=== PATIENT | male | born 1965 | race Caucasian/White ===

== ENCOUNTER 2018-01-05 10:16 | Day surgery (SDC) | payer BC, OTHER ==
[~2018-01-05] VITALS: Ht 170.2 cm; Wt 79.4 kg
[~2018-01-05 10:16] MED LIST: ASCO500C17 PO; CETI10TA17 PO; CHOL100045 PO; CYAN250010 PO; DOXY100C2 PO; EZET10TA5 PO; FERR160T5 PO; GUAI100L73 PO; IBUP-15 PO; METF750T2 PO; OMG1KC PO
--- OUTSIDE RECORDS SUMMARY | 2018-01-05 10:19 | XMS REPORT ---
Author Author ENRIQUETA BAKER [facility] Address [address] [place] [address] Care Team Providers Care Paint Trimmer Pipe Bowls Name Role Phone ENRIQUETA BAKER Unavailable PROBLEMS Type Condition ICD9-CM Code [id number] Code Onset Dates Condition Status SNOMED Code Problem Mood disorder F39 Active 30391018 Problem Low back pain M54.5 Active 338317394 Problem Mixed hyperlipidemia E78.2 Active 189165092 Problem Type 2 diabetes mellitus without complication E11.9 Active 26319480 Problem Cramps of right lower extremity R25.2 Active 332393656 Problem Unspecified mood [affective] disorder F39 Active 394031346 ALLERGIES No Known Allergies ENCOUNTERS Encounter Location Date Diagnosis [facility] [id number] [place] [address] 97338- 8567 Feb, [facility] [id number] [place] [address] 22988- 1559 Jan, [facility] [id number] [place] [address] 25227- 2134 Dec, Mood disorder F39 [facility] [id number] [place] [address] 46042- 6583 Nov, Type 2 diabetes mellitus without complication E11.9 ; Mixed hyperlipidemia E78.2 ; Elevated blood pressure reading R03.0 ; Screening for colon cancer Z12.11 and Positive depression screening Z13.89 [facility] [id number] [place] [address] 74368- 6486 Mar, Mixed hyperlipidemia E78.2 [facility] [id number] [place] [address] 80562- 5720 Mar, Type 2 diabetes mellitus without complication E11.9 and Mixed hyperlipidemia E78.2 [place] [facility] [id number] [place] [address] 47552- 7813 Feb, [place] [facility] [id number] [place] [address] 97958- 8090 Feb, [place] [facility] [id number] [place] [address] 85860- 8889 Feb, [place] [id number] [place] [address] 66426- 2413 Feb, Type 2 diabetes mellitus without complication E11.9 [facility] [address] [place] [address] Oct, Hand pain, right M79.641 ; Mixed hyperlipidemia E78.2 and Hand pain, left M79.642 [place] [id number] [place] [address] 44051- 2125 Sep, Hand pain, right M79.641 and Hand pain, left M79.642 [place] [facility] [id number] [place] [address] 29808- 0844 Sep, Type 2 diabetes mellitus without complication E11.9 ; Mixed hyperlipidemia E78.2 ; Low back pain M54.5 ; Hand pain, left M79.642 and Hand pain, right M79.641 [place] [facility] [id number] [place] [address] 91875- 0562 August, [place] [id number] [place] [address] 87047- 9324 May, [place] [facility] [id number] [place] [address] 09655- 5118 Apr, Mixed hyperlipidemia E78.2 [place] [facility] [id number] [place] [address] 78590- 0110 Apr, Mixed hyperlipidemia E78.2 ; Type 2 diabetes mellitus without complication E11.9 ; Cramps of right lower extremity R25.2 and Nevus of back D22.5 [place] [facility] [id number] [place] [address] 90897- 7748 Feb, Mixed hyperlipidemia E78.2 and Type 2 diabetes mellitus without complication E11.9 [facility] [id number] [place] [address] 34384- 9021 Nov, [facility] [id number] [place] [address] 07147- 8763 Nov, Mixed hyperlipidemia E78.2 and Type 2 diabetes mellitus without complication E11.9 [facility] [id number] [place] [address] 96746- 7352 Jun, Unspecified mood [affective] disorder F39 [facility] [id number] [place] [address] 26754- 5762 Feb, Mixed hyperlipidemia E78.2 and Type 2 diabetes mellitus without complication E11.9 [facility] [id number] [place] [address] 48873- 4346 Dec, Diabetes 250.00 and Hyperlipidemia 272.4 [facility] [id number] [place] [address] 37730- 2203 Jul, [facility] [id number] [place] [address] 46500- 0247 Jul, [facility] [id number] [place] [address] 12676- 7251 Mar, [facility] [id number] [place] [address] 58702- 2279 Mar, [facility] [id number] [place] [address] 25063- 1255 Feb, [facility] [id number] [place] [address] 19457- 1665 Feb, [facility] [id number] [place] [address] 54169- 8673 Feb, [facility] [id number] [place] [address] 98010- 0390 Feb, IMMUNIZATIONS No Known Immunizations SOCIAL HISTORY Never Assessed REASON FOR VISIT Diabetes- Waldemar Mckeon RN PLAN OF CARE Activity Details Follow Up 3 Months Reason:DM VITAL SIGNS Height 67 in 2017-11-05 Weight 180 lbs 2017-11-05 Temperature 98.0 degrees Fahrenheit 2017-11-05 Heart Rate 74 bpm 2017-11-05 Respiratory Rate 18 2017-11-05 BMI 28.19 kg/m2 2017-11-05 Blood pressure systolic 148 mmHg 2017-11-05 Blood pressure diastolic 90 mmHg 2017-11-05 MEDICATIONS Medication Instructions Dosage Frequency Start Date End Date Duration Status Zyrtec Allergy 10 MG Orally Once a day 1 tablet 24h Active Fish Oil 1200 MG Orally Twice a day 1 capsule 12h Active Zetia 10 MG TAKE ONE TABLET BY MOUTH ONCE DAILY Active Vitamin D 1000 UNIT Active Test strips Test Strips Check blood sugar Mar, Active metformin 750 mg by oral route 2 times a day take 1 tablet by Oral route 2 times per day with the evening meal 12h Active Multivitamin 1 tablet by Oral route 1 time per day Feb, Active Glucometer 1 glucometer Use glucometer to check blood sugar Mar, Active Lancets - subcutaneously Once a day E11.9 test blood sugar Feb, Active Ferrous Sulfate 325 mg (65 mg iron) 1 Tablet by Oral route 1 time per day give with food Feb, Active Vitamin C 1000 MG Orally 2 times a day 1 tablet 12h Active RESULTS Name Result Date Reference Range A1C (IN HOUSE) 2017-11-05 A1C IN HOUSE 5.9 4.3 - 5.6 % Previous A1c 5.6 Lot [id number] Exp date 06/2019 PROCEDURES Procedure Date Ordered Result Body Site GLYCATED HEMOGLOBIN TEST Nov 05, 2017 INSTRUCTIONS MEDICATIONS ADMINISTERED No Known Medications MEDICAL (GENERAL) HISTORY Type Description Date Medical History hyperlipidemia Medical History pre-diabetic Medical History Sleep Apnea- Cpap Medical History Viral warts, unspecified Surgical History appendectomy 1980
--- OUTSIDE RECORDS SUMMARY | 2018-01-05 10:19 | XMS REPORT ---
Author Author CURT SAMUEL [facility] Address [address] [place] [address] Care Team Providers Care General Counselor Name Role Phone CURT SAMUEL Unavailable PROBLEMS Type Condition ICD9-CM Code RSB99-HU Code Onset Dates Condition Status SNOMED Code Problem Mood disorder F39 Active 50933520 Problem Low back pain M54.5 Active 762891333 Problem Mixed hyperlipidemia E78.2 Active 098946253 Problem Type 2 diabetes mellitus without complication E11.9 Active 54812754 Problem Cramps of right lower extremity R25.2 Active 909361496 Problem Unspecified mood [affective] disorder F39 Active 217235018 ALLERGIES No Information ENCOUNTERS Encounter Location Date Diagnosis [facility] [facility] [id number] [place] [address] 41615- 4077 Feb, [facility] [id number] [place] [address] 68492- 7963 Jan, [facility] [id number] [place] [address] 73156- 8796 Jan, [facility] [id number] [place] [address] 76837- 3003 Dec, Mood disorder F39 [facility] [id number] [place] [address] 93366- 6272 Nov, Type 2 diabetes mellitus without complication E11.9 ; Mixed hyperlipidemia E78.2 ; Elevated blood pressure reading R03.0 ; Screening for colon cancer Z12.11 and Positive depression screening Z13.89 [facility] [id number] [place] [address] 33223- 9188 Mar, Mixed hyperlipidemia E78.2 [facility] [address] 41591- 0375 Mar, Type 2 diabetes mellitus without complication E11.9 and Mixed hyperlipidemia E78.2 [place] [facility] [id number] [place] [address] 64740- 3644 Feb, [facility] [id number] [place] [address] 14166- 4712 Feb, [facility] [facility] [id number] [place] [address] 87653- 6605 Feb, [facility] [facility] [id number] [place] [address] 81866- 3311 Feb, Type 2 diabetes mellitus without complication E11.9 [facility] [address] [place] [address] Oct, Hand pain, right M79.641 ; Mixed hyperlipidemia E78.2 and Hand pain, left M79.642 [place] [facility] [id number] [place] [address] 55877- 3051 Sep, Hand pain, right M79.641 and Hand pain, left M79.642 [place] [facility] [id number] [place] [address] 30239- 3138 Sep, Type 2 diabetes mellitus without complication E11.9 ; Mixed hyperlipidemia E78.2 ; Low back pain M54.5 ; Hand pain, left M79.642 and Hand pain, right M79.641 [place] [id number] [place] [address] 37021- 8429 August, [facility] [facility] [id number] [place] [address] 35663- 8501 May, [facility] [facility] [id number] [place] [address] 14122- 2427 Apr, Mixed hyperlipidemia E78.2 [place] [facility] [id number] [place] [address] 91265- 4645 Apr, Mixed hyperlipidemia E78.2 ; Type 2 diabetes mellitus without complication E11.9 ; Cramps of right lower extremity R25.2 and Nevus of back D22.5 [facility] [address] [address]- 2563 Feb, Mixed hyperlipidemia E78.2 and Type 2 diabetes mellitus without complication E11.9 [facility] [id number] [place] [address] 03278- 4353 Nov, [facility] [id number] [place] [address] 91887- 5532 Nov, Mixed hyperlipidemia E78.2 and Type 2 diabetes mellitus without complication E11.9 [facility] [id number] [place] [address] 67064- 9208 Jun, Unspecified mood [affective] disorder F39 [facility] [id number] [place] [address] 62821- 1843 Feb, Mixed hyperlipidemia E78.2 and Type 2 diabetes mellitus without complication E11.9 [facility] [id number] [place] [address] 13675- 0123 30 Dec, 2014 Diabetes 250.00 and Hyperlipidemia 272.4 [facility] [id number] [place] [address] 50294- 6132 Jul, [facility] [id number] [place] [address] 91211- 8491 Jul, [facility] [id number] [place] [address] 79062- 8592 Mar, [facility] [id number] [place] [address] 84553- 5030 Mar, [facility] [id number] [place] [address] 18370- 8836 Feb, [facility] [id number] [place] [address] 87500- 4702 Feb, [facility] [id number] [place] [address] 88269- 7715 Feb, [facility] [address] [facility] [id number] [place] [address]- 6860 Feb, IMMUNIZATIONS No Known Immunizations SOCIAL HISTORY Never Assessed REASON FOR VISIT intake PLAN OF CARE Activity Details Follow Up Next Available Reason: F/U VITAL SIGNS MEDICATIONS Medication Instructions Dosage Frequency Start Date End Date Duration Status Test strips Test Strips Check blood sugar Mar, Active Glucometer 1 glucometer Use glucometer to check blood sugar Mar, Active Ferrous Sulfate 325 mg (65 mg iron) 1 Tablet by Oral route 1 time per day give with food Feb, Active Multivitamin 1 tablet by Oral route 1 time per day Feb, Active metformin 750 mg by oral route 2 times a day take 1 tablet by Oral route 2 times per day with the evening meal 12h Active Zyrtec Allergy 10 MG Orally Once a day 1 tablet 24h Active Vitamin C 1000 MG Orally 2 times a day 1 tablet 12h Active Fish Oil 1200 MG Orally Twice a day 1 capsule 12h Active Zetia 10 MG TAKE ONE TABLET BY MOUTH ONCE DAILY 30 Active Vitamin D 1000 UNIT Active MetFORMIN HCl ER 750 MG TAKE ONE TABLET BY MOUTH TWICE DAILY WITH MEALS 30 Active Lancets - subcutaneously Once a day E11.9 test blood sugar Feb, Active RESULTS No Results PROCEDURES Procedure Date Ordered Result Body Site Psych diagnostic evaluation, established patient Dec 16, 2017 INSTRUCTIONS MEDICATIONS ADMINISTERED No Known Medications MEDICAL (GENERAL) HISTORY Type Description Date Medical History hyperlipidemia Medical History pre-diabetic Medical History Sleep Apnea- Cpap Medical History Viral warts, unspecified Surgical History appendectomy 1981
--- OUTSIDE RECORDS SUMMARY | 2018-01-05 10:19 | XMS REPORT ---
Author Author BOBY AGUILAR [facility] Address [address] [place] [address] Care Team Providers Care Sales Representative Gas [employer] Name Role Phone PAULIEBOBY AGUIRRE Unavailable PROBLEMS Type Condition ICD9-CM Code DOO39-UM Code Onset Dates Condition Status SNOMED Code Problem Low back pain M54.5 Active 028183413 Problem Cramps of right lower extremity R25.2 Active 356093795 Problem Type 2 diabetes mellitus without complication E11.9 Active 29860678 Problem Unspecified mood [affective] disorder F39 Active 079351258 Problem Mixed hyperlipidemia E78.2 Active 197458764 ALLERGIES No Information ENCOUNTERS Encounter Location Date Diagnosis [facility] [address] [address] 6111 Mar, Mixed hyperlipidemia E78.2 [facility] [address] [place] [address] 12576- 2979 Mar, Type 2 diabetes mellitus without complication E11.9 and Mixed hyperlipidemia E78.2 [facility] [address], [place] [address] 9803 Feb, [facility] [address] [place] [address] 90333- 8891 Feb, [facility] [address] [place] [address] 77353- 7792 Feb, [facility] [address] [place] [address] 19346- 4665 Feb, Type 2 diabetes mellitus without complication E11.9 [facility] [address] [facility] [id number] [place] [id number] Oct, Hand pain, right M79.641 ; Mixed hyperlipidemia E78.2 and Hand pain, left M79.642 [place] [address] [place] [address] 32767- 9043 09 Sep, 2016 Hand pain, right M79.641 and Hand pain, left M79.642 [place] [id number] [place] [address] 50184- 1013 Sep, Type 2 diabetes mellitus without complication E11.9 ; Mixed hyperlipidemia E78.2 ; Low back pain M54.5 ; Hand pain, left M79.642 and Hand pain, right M79.641 [place] [id number] [place] [address] 35980- 6907 August, [place] [address] 83211- 1514 May, [place] [id number] [place] [address] 67240- 3420 Apr, Mixed hyperlipidemia E78.2 [place] [id number] [place] [address] 26803- 8756 Apr, Mixed hyperlipidemia E78.2 ; Type 2 diabetes mellitus without complication E11.9 ; Cramps of right lower extremity R25.2 and Nevus of back D22.5 [place] [id number] [place] [address] 77564- 9809 Feb, Mixed hyperlipidemia E78.2 and Type 2 diabetes mellitus without complication E11.9 [place] [id number] [place] [address] 80867- 5429 Nov, [place] [id number] [place] [address] 52973- 0719 Nov, Mixed hyperlipidemia E78.2 and Type 2 diabetes mellitus without complication E11.9 [place] [id number] [place] [address] 90497- 0987 Jun, Unspecified mood [affective] disorder F39 [place] [id number] [place] [address] 70358- 1846 Feb, Mixed hyperlipidemia E78.2 and Type 2 diabetes mellitus without complication E11.9 [facility] [address], [place] [address]- 2519 Dec, Diabetes 250.[address] [facility] [address]- [address] [address] Jul, [address] [facility] [id number] [place] [address] 765324- [address] Jul, [facility] [id number] [place] [address] 39166- 0995 Mar, [facility] [id number] [place] [address] 21236- 7674 Mar, [facility] [id number] [place] [address] 57542- 3302 Feb, [facility] [id number] [place] [address] 37090- 6707 Feb, [facility] [address], [place] [address]- 0651 Feb, [facility] [address]- 6570 Feb, IMMUNIZATIONS No Known Immunizations SOCIAL HISTORY Never Assessed REASON FOR VISIT labs. Jamin PLAN OF CARE Activity Details Follow Up prn, 1 Year Reason: VITAL SIGNS MEDICATIONS Unknown Medications RESULTS No Results PROCEDURES Procedure Date Ordered Result Body Site ROUTINE VENIPUNCTURE 2016-10-06 N/A ASSAY OF CK (CPK) October 06, 2016 C-REACTIVE PROTEIN October 06, 2016 RHEUMATOID FACTOR, QUANT October 06, 2016 ANTINUCLEAR ANTIBODIES October 06, 2016 LIPID PANEL October 06, 2016 ASSAY OF MAGNESIUM October 06, 2016 RBC SED RATE, AUTOMATED October 06, 2016 COMPREHEN METABOLIC PANEL October 06, 2016 INSTRUCTIONS MEDICATIONS ADMINISTERED No Known Medications MEDICAL (GENERAL) HISTORY Type Description Date Medical History hyperlipidemia Medical History pre-diabetic Medical History Sleep Apnea- Cpap Medical History Viral warts, unspecified Surgical History appendectomy 1981
--- OUTSIDE RECORDS SUMMARY | 2018-01-05 10:20 | XMS REPORT ---
Author Author DIANN JUAREZ Organization [facility] Address [address] [place] [address] Care Team Providers Care Well Point Pumping Supervisor Name Role Phone DIANN JUAREZ Unavailable PROBLEMS Type Condition ICD9-CM Code NKT07-IW Code Onset Dates Condition Status SNOMED Code Problem Low back pain M54.5 Active 157381424 Problem Cramps of right lower extremity R25.2 Active 116431717 Problem Type 2 diabetes mellitus without complication E11.9 Active 83432241 Problem Unspecified mood [affective] disorder F39 Active 197377211 Problem Mixed hyperlipidemia E78.2 Active 947514718 ALLERGIES No Information ENCOUNTERS Encounter Location Date Diagnosis [facility] [id number] [place] [address] 58913- 7991 Mar, Mixed hyperlipidemia E78.2 [facility] [address] [place] [address] 97005- 7126 Mar, Type 2 diabetes mellitus without complication E11.9 and Mixed hyperlipidemia E78.2 [facility] [address] [address]- 9661 Feb, [facility] [address] [place] [address] 84053- 1565 Feb, [facility] [address] [address]- 4295 Feb, [facility] [address] [place] [address] 61385- 2410 Feb, Type 2 diabetes mellitus without complication E11.9 [facility] [id number] [place] [id number] Oct, Hand pain, right M79.641 ; Mixed hyperlipidemia E78.2 and Hand pain, left M79.642 [facility] [id number] [place] [address] 67438- 5607 09 Sep, 2016 Hand pain, right M79.641 and Hand pain, left M79.642 [facility] [id number] [place] [address] 18659- 0496 Sep, Type 2 diabetes mellitus without complication E11.9 ; Mixed hyperlipidemia E78.2 ; Low back pain M54.5 ; Hand pain, left M79.642 and Hand pain, right M79.641 [place] [id number] [place] [address] 99209- 3797 August, [place] [id number] [place] [address] 52761- 4725 May, [place] [id number] [place] [address] 83668- 7835 Apr, Mixed hyperlipidemia E78.2 [place] [id number] [place] [address] 69667- 0553 Apr, Mixed hyperlipidemia E78.2 ; Type 2 diabetes mellitus without complication E11.9 ; Cramps of right lower extremity R25.2 and Nevus of back D22.5 [place] [id number] [place] [address] 73055- 3675 Feb, Mixed hyperlipidemia E78.2 and Type 2 diabetes mellitus without complication E11.9 [place] [id number] [place] [address] 39817- 4352 Nov, [place] [id number] [place] [address] 45194- 1134 Nov, Mixed hyperlipidemia E78.2 and Type 2 diabetes mellitus without complication E11.9 [place] [id number] [place] [address] 12831- 4317 Jun, Unspecified mood [affective] disorder F39 [place] [id number] [place] [address] 99704- 7552 Feb, Mixed hyperlipidemia E78.2 and Type 2 diabetes mellitus without complication E11.9 [facility] [address] [place] [address] 31930- 9696 Dec, Diabetes 250.00 and Hyperlipidemia 272.4 [facility] [id number] [place] [address] 47719- 7398 Jul, [facility] [id number] [place] [address] 53850- 4994 Jul, [facility] [id number] [place] [address] 37421- 6570 Mar, [facility] [id number] [place] [address] 68602- 8225 Mar, [facility] [id number] [place] [address] 43775- 8682 Feb, [facility] [id number] [place] [address] 79111- 5755 Feb, [facility] [id number] [place] [address] 98456- 1562 Feb, [facility] [id number] [place] [address] 76992- 2780 Feb, IMMUNIZATIONS No Known Immunizations SOCIAL HISTORY Never Assessed REASON FOR VISIT Lab (walk-in) PLAN OF CARE VITAL SIGNS MEDICATIONS Unknown Medications RESULTS No Results PROCEDURES Procedure Date Ordered Result Body Site COMPREHEN METABOLIC PANEL Mar 31, 2017 VENIPADONIS, ROUTINE* Mar 31, 2017 INSTRUCTIONS MEDICATIONS ADMINISTERED No Known Medications MEDICAL (GENERAL) HISTORY Type Description Date Medical History hyperlipidemia Medical History pre-diabetic Medical History Sleep Apnea- Cpap Medical History Viral warts, unspecified Surgical History appendectomy 1980
--- OUTSIDE RECORDS SUMMARY | 2018-01-05 10:20 | XMS REPORT ---
Author Author DIANN JUAREZ Organization [facility] Address [address] [place] [address] Care Team Providers Care Ammonium Hydroxide Operator Name Role Phone DIANN JUAREZ Unavailable PROBLEMS Type Condition ICD9-CM Code [id number] Code Onset Dates Condition Status SNOMED Code Problem Low back pain M54.5 Active 626686501 Problem Cramps of right lower extremity R25.2 Active 669772215 Problem Type 2 diabetes mellitus without complication E11.9 Active 98257169 Problem Unspecified mood [affective] disorder F39 Active 615828417 Problem Mixed hyperlipidemia E78.2 Active 818230697 ALLERGIES No Known Allergies ENCOUNTERS Encounter Location Date Diagnosis [place] [id number] [place] [address] 85911- 8631 Mar, Mixed hyperlipidemia E78.2 [facility] [address] [place] [address] 42309- 6612 Mar, Type 2 diabetes mellitus without complication E11.9 and Mixed hyperlipidemia E78.2 [facility] [address] [address] 3[address] Feb, [facility] [address] [place] [address] 15448- 2356 Feb, [facility] [address] [address] 5542 Feb, [facility] [address] [place] [address] 08420- 4556 Feb, Type 2 diabetes mellitus without complication E11.9 [facility] [address] [id number] [id number] Oct, Hand pain, right M79.641 ; Mixed hyperlipidemia E78.2 and Hand pain, left M79.642 [facility] [address] [place] [address] 98757- 8399 09 Sep, 2016 Hand pain, right M79.641 and Hand pain, left M79.642 [facility] [address] [place] [id number] [place] [address] 07365- 5217 Sep, Type 2 diabetes mellitus without complication E11.9 ; Mixed hyperlipidemia E78.2 ; Low back pain M54.5 ; Hand pain, left M79.642 and Hand pain, right M79.641 [place] [address] [place] [id number] [place] [address] 63520- 5205 August, [place] [address] [place] [id number] [place] [address] 38600- 3728 May, [place] [address] [place] [id number] [place] [address] 10050- 7457 Apr, Mixed hyperlipidemia E78.2 [place] [address] [place] [id number] [place] [address] 76442- 5120 Apr, Mixed hyperlipidemia E78.2 ; Type 2 diabetes mellitus without complication E11.9 ; Cramps of right lower extremity R25.2 and Nevus of back D22.5 [place] [address] [place] [id number] [place] [address] 60794- 4035 Feb, Mixed hyperlipidemia E78.2 and Type 2 diabetes mellitus without complication E11.9 [place] [address] [place] [id number] [place] [address] 27124- 8440 Nov, [place] [address] [place] [id number] [place] [address] 53632- 0062 Nov, Mixed hyperlipidemia E78.2 and Type 2 diabetes mellitus without complication E11.9 [place] [address] [place] [id number] [place] [address] 97908- 8441 Jun, Unspecified mood [affective] disorder F39 [place] [address] [place] [id number] [place] [address] 03037- 4564 Feb, Mixed hyperlipidemia E78.2 and Type 2 diabetes mellitus without complication E11.9 [facility] [address] [place] [address] 53453- 7940 Dec, Diabetes 250.00 and Hyperlipidemia 272.4 [facility] [address] [place] [address] 44390- 3232 Jul, [facility] [address] [place] [id number] [place] [address] 74988- 6160 Jul, [facility] [address] [place] [address] [id number] [place] [address] 13054- 9451 Mar, [facility] [address] [place] [address] [id number] [place] [address] 80481- 0984 Mar, [facility] [address] [place] [address] [id number] [place] [address] 81699- 4204 Feb, [facility] [address] [place] [id number] [place] [address] 52341- 0668 Feb, [facility] [address] [place] [address] 18945- 2774 Feb, [facility] [address] [place] [address] 24522- 8046 Feb, IMMUNIZATIONS No Known Immunizations SOCIAL HISTORY Never Assessed REASON FOR VISIT Diabetes f/u -Pb Quintero PLAN OF CARE Activity Details Follow Up 3 Months Reason:DM VITAL SIGNS Height 67 in 2017-03-25 Weight 175 lbs 2017-03-25 Temperature 98.6 degrees Fahrenheit 2017-03-25 Heart Rate 80 bpm 2017-03-25 Respiratory Rate 18 2017-03-25 BMI 27.41 kg/m2 2017-03-25 Blood pressure systolic 120 mmHg 2017-03-25 Blood pressure diastolic 70 mmHg 2017-03-25 MEDICATIONS Medication Instructions Dosage Frequency Start Date End Date Duration Status Glucometer 1 glucometer Use glucometer to check blood sugar Mar, Active Vitamin D 2000 UNIT Active Zyrtec Allergy 10 MG Orally Once a day 1 tablet 24h Active Ferrous Sulfate 325 mg (65 mg iron) 1 Tablet by Oral route 1 time per day give with food Feb, Active Test strips Test Strips Check blood sugar Mar, Active Zetia 10 mg TAKE ONE TABLET BY MOUTH ONCE DAILY 30 Active Multivitamin 1 tablet by Oral route 1 time per day Feb, Active Vitamin C 1000 MG Orally 2 times a day 1 tablet 12h Active Lancets - subcutaneously Once a day E11.9 test blood sugar Feb, Active Fish Oil 1200 MG Orally Twice a day 1 capsule 12h Active metformin 750 mg by oral route 2 times a day take 1 tablet by Oral route 2 times per day with the evening meal 12h Active Flonase 50 MCG/ACT Nasally twice daily for 2 weeks then once daily 1 spray in each nostril Feb, 30 day(s) Active RESULTS Name Result Date Reference Range A1C (IN HOUSE) 2017-03-25 A1C IN HOUSE 5.6 4.3 - 5.6 % Previous A1c 5.7 Lot [id number] Exp date 12/2018 MICROALBUMIN, URINE (IN HOUSE) 2017-03-25 MICROALBUMIN Lot # [id number] Exp date 12/2017 Clarity clear Color Yellow ALB 10 CRE 300 A:C (IN HOUSE) <30 Control Control Lot # Exp date PROCEDURES Procedure Date Ordered Result Body Site GLYCATED HEMOGLOBIN TEST Mar 25, 2017 MICROALBUMIN, SEMIQUANT Mar 25, 2017 INSTRUCTIONS MEDICATIONS ADMINISTERED No Known Medications MEDICAL (GENERAL) HISTORY Type Description Date Medical History hyperlipidemia Medical History pre-diabetic Medical History Sleep Apnea- Cpap Medical History Viral warts, unspecified Surgical History appendectomy 1980
--- OUTSIDE RECORDS SUMMARY | 2018-01-05 10:20 | XMS REPORT ---
Author Author DIANN JUAREZ [facility] Address [address] [place] [address] Care Team Providers Care Slide Fastener Chain Assembler Name Role Phone DIANN JUAREZ Unavailable PROBLEMS Type Condition ICD9-CM Code [id number] Code Onset Dates Condition Status SNOMED Code Problem Low back pain M54.5 Active 272362219 Problem Cramps of right lower extremity R25.2 Active 185841584 Problem Type 2 diabetes mellitus without complication E11.9 Active 97665695 Problem Unspecified mood [affective] disorder F39 Active 469073966 Problem Mixed hyperlipidemia E78.2 Active 810775418 ALLERGIES No Information SOCIAL HISTORY Never Assessed PLAN OF CARE VITAL SIGNS MEDICATIONS Medication Instructions Dosage Frequency Start Date End Date Duration Status Zetia 10 mg Orally Once a day TAKE ONE TABLET BY MOUTH ONCE DAILY 24h 30 Active RESULTS No Results PROCEDURES No Known procedures IMMUNIZATIONS No Known Immunizations MEDICAL (GENERAL) HISTORY Type Description Date Medical History hyperlipidemia Medical History pre-diabetic Medical History Sleep Apnea- Cpap Medical History Viral warts, unspecified Surgical History appendectomy 1980
--- OUTSIDE RECORDS SUMMARY | 2018-01-05 10:20 | XMS REPORT ---
Author Author DIANN JUAREZ Organization [facility] Address [address] [place] [address] Care Team Providers Care Expansion Joint Finisher Name Role Phone DIANN JUAREZ Unavailable PROBLEMS Type Condition ICD9-CM Code GZP28-[id number] Code Onset Dates Condition Status SNOMED Code Problem Low back pain M54.5 Active 987324985 Problem Cramps of right lower extremity R25.2 Active 167646082 Problem Type 2 diabetes mellitus without complication E11.9 Active 69028412 Problem Unspecified mood [affective] disorder F39 Active 637162042 Problem Mixed hyperlipidemia E78.2 Active 256439974 ALLERGIES No Information ENCOUNTERS Encounter Location Date Diagnosis [facility] [address] [place] [address] 45774- 0608 Mar, Mixed hyperlipidemia E78.2 [facility] [address] [place] [address] 20598- 7190 Mar, Type 2 diabetes mellitus without complication E11.9 and Mixed hyperlipidemia E78.2 [facility] [address], [place] [address] 8841 Feb, [facility] [address] [place] [address] 44426- 4722 Feb, [facility] [address], [place] [address]- 5484 Feb, [facility] [address] [place] [address] 34656- 6360 Feb, Type 2 diabetes mellitus without complication E11.9 [facility] [id number] [id number] Oct, Hand pain, right M79.641 ; Mixed hyperlipidemia E78.2 and Hand pain, left M79.642 [facility] [address] [place] [id number] [place] [address] 08444- 1610 09 Sep, 2016 Hand pain, right M79.641 and Hand pain, left M79.642 [facility] [address] [place] [id number] [place] [address] 65066- 7639 Sep, Type 2 diabetes mellitus without complication E11.9 ; Mixed hyperlipidemia E78.2 ; Low back pain M54.5 ; Hand pain, left M79.642 and Hand pain, right M79.641 [place] [address] [place] [id number] [place] [address] 89113- 4091 August, [place] [address] [place] [id number] [place] [address] 10630- 1888 May, [place] [address] [place] [id number] [place] [address] 64901- 0995 Apr, Mixed hyperlipidemia E78.2 [place] [address] [place] [id number] [place] [address] 93260- 7332 Apr, Mixed hyperlipidemia E78.2 ; Type 2 diabetes mellitus without complication E11.9 ; Cramps of right lower extremity R25.2 and Nevus of back D22.5 [place] [address] [place] [id number] [place] [address] 07762- 9140 Feb, Mixed hyperlipidemia E78.2 and Type 2 diabetes mellitus without complication E11.9 [place] [address] [place] [id number] [place] [address] 90994- 4482 Nov, [place] [address] [place] [id number] [place] [address] 66126- 1297 Nov, Mixed hyperlipidemia E78.2 and Type 2 diabetes mellitus without complication E11.9 [place] [address] [place] [id number] [place] [address] 30828- 7187 Jun, Unspecified mood [affective] disorder F39 [place] [address] [place] [id number] [place] [address] 06015- 5428 Feb, Mixed hyperlipidemia E78.2 and Type 2 diabetes mellitus without complication E11.9 [facility] [address] [place] [id number] [place] [address] 91721- 3080 Dec, Diabetes 250.00 and Hyperlipidemia 272.4 [facility] [address] [place] [id number] [place] [address] 45707- 0718 Jul, [facility] [address] 77695- 5010 Jul, [facility] [address] [place] [id number] [place] [address] 92581- 2693 Mar, [facility] [address] [place] [id number] [place] [address] 37968- 5587 Mar, [facility] [address] [place] [id number] [place] [address] 99255- 4856 Feb, [facility] [address] [place] [id number] [place] [address] 07651- 6846 Feb, [facility] [address] [place] [id number] [place] [address] 83248- 9865 Feb, [facility] [address] [place] [id number] [place] [address] 97816- 6483 Feb, IMMUNIZATIONS No Known Immunizations SOCIAL HISTORY Never Assessed REASON FOR VISIT Triage PLAN OF CARE VITAL SIGNS MEDICATIONS Unknown Medications RESULTS No Results PROCEDURES No Known procedures INSTRUCTIONS MEDICATIONS ADMINISTERED No Known Medications MEDICAL (GENERAL) HISTORY Type Description Date Medical History hyperlipidemia Medical History pre-diabetic Medical History Sleep Apnea- Cpap Medical History Viral warts, unspecified Surgical History appendectomy 1980
--- OUTSIDE RECORDS SUMMARY | 2018-01-05 10:20 | XMS REPORT ---
Author Author DIANN JUAREZ Organization [facility] Address [address] [place] [address] Care Team Providers Care Evp Business Development Name Role Phone DIANN JUAREZ Unavailable PROBLEMS Type Condition ICD9-CM Code [id number] Code Onset Dates Condition Status SNOMED Code Problem Low back pain M54.5 Active 394509027 Problem Cramps of right lower extremity R25.2 Active 390224734 Problem Type 2 diabetes mellitus without complication E11.9 Active 54839445 Problem Unspecified mood [affective] disorder F39 Active 796937039 Problem Mixed hyperlipidemia E78.2 Active 423362519 ALLERGIES No Information ENCOUNTERS Encounter Location Date Diagnosis [facility] [address] [place] [address] 93712- 0305 Mar, Mixed hyperlipidemia E78.2 [facility] [address] [place] [address] 74636- 6227 Mar, Type 2 diabetes mellitus without complication E11.9 and Mixed hyperlipidemia E78.2 [facility] [address] [address]- 8128 Feb, [facility] [address] [place] [address] 17654- 5802 Feb, [facility] [address] [address]- 5453 Feb, [facility] [address] [place] [address] 81604- 7050 Feb, Type 2 diabetes mellitus without complication E11.9 [facility] [address] [id number] [place] [id number] Oct, Hand pain, right M79.641 ; Mixed hyperlipidemia E78.2 and Hand pain, left M79.642 [facility] [address] [place] [id number] [place] [address] 09723- 6718 09 Sep, 2016 Hand pain, right M79.641 and Hand pain, left M79.642 [facility] [address] [place] [id number] [place] [address] 45037- 3235 Sep, Type 2 diabetes mellitus without complication E11.9 ; Mixed hyperlipidemia E78.2 ; Low back pain M54.5 ; Hand pain, left M79.642 and Hand pain, right M79.641 [place] [address] [place] [id number] [place] [address] 33537- 3002 August, [place] [address] [place] [id number] [place] [address] 24597- 9821 May, [place] [address] [place] [id number] [place] [address] 53864- 1499 Apr, Mixed hyperlipidemia E78.2 [place] [address] [place] [id number] [place] [address] 46628- 1205 Apr, Mixed hyperlipidemia E78.2 ; Type 2 diabetes mellitus without complication E11.9 ; Cramps of right lower extremity R25.2 and Nevus of back D22.5 [place] [address] [place] [id number] [place] [address] 36025- 0326 Feb, Mixed hyperlipidemia E78.2 and Type 2 diabetes mellitus without complication E11.9 [place] [address] [place] [id number] [place] [address] 49276- 1852 Nov, [place] [address] [place] [id number] [place] [address] 71203- 6895 Nov, Mixed hyperlipidemia E78.2 and Type 2 diabetes mellitus without complication E11.9 [place] [address] [place] [id number] [place] [address] 82987- 0094 Jun, Unspecified mood [affective] disorder F39 [place] [address] [place] [id number] [place] [address] 39668- 5075 Feb, Mixed hyperlipidemia E78.2 and Type 2 diabetes mellitus without complication E11.9 [facility] [address] [address]- 3821 Dec, Diabetes 250.00 and Hyperlipidemia 272.4 [facility] [address] [address]- 0970 14 Jul, 2014 [facility] [address] [place] [id number] [place] [address] 88680- 2930 Jul, [facility] [address] [place] [address] 68983- 3572 Mar, [facility] [address] [place] [id number] [place] [address] 75533- 1207 Mar, [facility] [address] [place] [id number] [place] [address] 06006- 5065 Feb, [facility] [address] [place] [id number] [place] [address] 72434- 9747 Feb, [facility] [address] [address]- 4576 Feb, [facility] [address] [address]- 4486 Feb, IMMUNIZATIONS No Known Immunizations SOCIAL HISTORY Never Assessed REASON FOR VISIT Glucometer PLAN OF CARE VITAL SIGNS MEDICATIONS Medication Instructions Dosage Frequency Start Date End Date Duration Status Blood Glucose Test - subcutaneously Once a day E11.9 test blood sugar Feb, Active Blood Glucose Monitor System w/Device as directed Feb, Active Lancets - subcutaneously Once a day E11.9 test blood sugar Feb, Active RESULTS No Results PROCEDURES No Known procedures INSTRUCTIONS MEDICATIONS ADMINISTERED No Known Medications MEDICAL (GENERAL) HISTORY Type Description Date Medical History hyperlipidemia Medical History pre-diabetic Medical History Sleep Apnea- Cpap Medical History Viral warts, unspecified Surgical History appendectomy 1981
--- OUTSIDE RECORDS SUMMARY | 2018-01-05 10:21 | XMS REPORT | Continuity of Care Document ---
Author Author [facility] Address Unknown Phone Unavailable Allergies Active Description Code Type Severity Reaction Onset Reported/Identified Relationship to Patient Clinical Status Yes No Known Medication Allergies Drug N/A N/A Yes No Known Medication Allergies Drug N/A N/A Yes No Known Drug Allergies [id number] Drug Allergy Unknown N/A 01/31/2011 Medications There is no data. Problems Date Dx Coded Attending Type Code Diagnosis Diagnosed By 01/31/2011 Ot 465.9 ACUTE URI NOS 01/31/2011 Ot 490 BRONCHITIS NOS 01/31/2011 Ot 786.2 COUGH 07/13/2013 TASH MCCOLLUM 327.23 OBST SLEEP APNEA 02/06/2014 JANNET PIRES DO 078.10 VIRAL WARTS UNSPECIFIED 02/06/2014 LEXIS STERN JANNET K 272.4 DYSLIPIDEMIA 02/06/2014 LEXIS STERN JANNET K 790.29 OTHER ABNORMAL GLUCOSE 02/06/2014 JUDITH PIRES DOA K 790.6 OTHER ABNORMAL BLOOD CHEMISTRY 02/06/2014 JUDITH PIRES DOA K V70.0 ROUTINE GENERAL MEDICAL EXAMINATION AT A HEALTH CARE FACILITY 02/06/2014 JUDITH PIRES DOA K 078.10 VIRAL WARTS UNSPECIFIED 02/06/2014 JUDITH PIRES DOA K 272.4 DYSLIPIDEMIA 02/06/2014 JUDITH PIRES DOA K 790.29 OTHER ABNORMAL GLUCOSE 02/06/2014 LEXIS STERN JANNET K 790.6 OTHER ABNORMAL BLOOD CHEMISTRY 02/06/2014 PIRES DO JANNET K V70.0 ROUTINE GENERAL MEDICAL EXAMINATION AT A HEALTH CARE FACILITY 02/10/2017 KORI OVALLE, RODNEY Burch Ot E11.9 TYPE 2 DIABETES MELLITUS WITHOUT COMPLIC 02/10/2017 KORI OVALLE, RODNEY Burch Ot E78.00 PURE HYPERCHOLESTEROLEMIA, UNSPECIFIED 02/10/2017 RODNEY SHEIKH MD Ot H65.93 UNSPECIFIED NONSUPPURATIVE OTITIS MEDIA, 02/10/2017 RODNEY SHEIKH MD Ot R20.2 PARESTHESIA OF SKIN 02/10/2017 RODNEY SHEIKH MD Ot R51 HEADACHE 02/10/2017 RODNEY SHEIKH MD Ot R74.0 NONSPEC ELEV OF LEVELS OF TRANSAMNS LA 02/10/2017 RODNEY SHEIKH MD Ot Z79.84 [employer]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 Metabolic Panel (14) - 04/09/16 16:44 Glucose, Serum 103 mg/dL 65-99 BUN 17 mg/dL 6-24 Creatinine, Serum 0.75 mg/dL 0.76-1.27 eGFR If NonAfricn Am 108 mL/min/1.73 >59 eGFR If Africn Am 125 mL/min/1.73 >59 BUN/Creatinine Ratio 23 9-20 Sodium, Serum 142 mmol/L 134-144 Potassium, Serum 4.5 mmol/L 3.5-5.2 Chloride, Serum 99 mmol/L 96-106 Carbon Dioxide, Total 24 mmol/L 18-29 Calcium, Serum 10.0 mg/dL 8.7-10.2 Protein, Total, Serum 7.6 g/dL 6.0-8.5 Albumin, Serum 5.3 g/dL 3.5-5.5 Globulin, Total 2.3 g/dL 1.5-4.5 A/G Ratio 2.3 1.1-2.5 Bilirubin, Total 0.8 mg/dL 0.0-1.2 Alkaline Phosphatase, S 40 IU/L 39-117 AST (SGOT) 18 IU/L 0-40 ALT (SGPT) 27 IU/L 0-44 Lipid Panel - 04/09/16 16:44 Cholesterol, Total 305 mg/dL 100-199 Triglycerides 169 mg/dL 0-149 HDL Cholesterol 30 mg/dL >39 VLDL Cholesterol Brock 34 mg/dL 5-40 LDL Cholesterol Calc 241 mg/dL 0-99 Creatine Kinase,Total,Serum - 04/09/16 16:44 Creatine Kinase,Total,Serum 91 U/L 24-204 Magnesium, Serum - 04/09/16 16:44 Magnesium, Serum 2.0 mg/dL 1.6-2.3 Complete blood count (CBC) with automated white blood cell (WBC) differential - 02/10/17 16:20 Blood leukocytes automated count (number/volume) 7.4 10*3/uL 4.3-11.0 Blood erythrocytes automated count (number/volume) 4.97 10*6/uL 4.35-5.85 Venous blood hemoglobin measurement (mass/volume) 15.0 g/dL 13.3-17.7 Blood hematocrit (volume fraction) 43 % 40-54 Automated erythrocyte mean corpuscular volume 87 [foz_us] 80-99 Automated erythrocyte mean corpuscular hemoglobin (mass per erythrocyte) 30 pg 25-34 Automated erythrocyte mean corpuscular hemoglobin concentration measurement ( mass/volume) 35 g/dL 32-36 Automated erythrocyte distribution width ratio 12.7 % 10.0-14.5 Automated blood platelet count (count/volume) 388 10*3/uL 130-400 Automated blood platelet mean volume measurement 9.8 [foz_us] 7.4-10.4 Automated blood neutrophils/100 leukocytes 53 % 42-75 Automated blood lymphocytes/100 leukocytes 37 % 12-44 Blood monocytes/100 leukocytes 8 % 0-12 Automated blood eosinophils/100 leukocytes 1 % 0-10 Automated blood basophils/100 leukocytes 0 % 0-10 Blood neutrophils automated count (number/volume) 3.9 10*3 1.8-7.8 Blood lymphocytes automated count (number/volume) 2.7 10*3 1.0-4.0 Blood monocytes automated count (number/volume) 0.6 10*3 0.0-1.0 Automated eosinophil count 0.1 10*3/uL 0.0-0.3 Automated blood basophil count (count/volume) 0.0 10*3/uL 0.0-0.1 Comprehensive metabolic panel - 02/10/17 16:20 Serum or plasma sodium measurement (moles/volume) 143 mmol/L 135-145 Serum or plasma potassium measurement (moles/volume) 3.6 mmol/L 3.6-5.0 Serum or plasma chloride measurement (moles/volume) 110 mmol/L 98-107 Carbon dioxide 22 mmol/L 21-32 Serum or plasma anion gap determination (moles/volume) 11 mmol/L 5-14 Serum or plasma urea nitrogen measurement (mass/volume) 13 mg/dL 7-18 Serum or plasma creatinine measurement (mass/volume) 0.77 mg/dL 0.60-1.30 Serum or plasma urea nitrogen/creatinine mass ratio 17 NRG Serum or plasma creatinine measurement with calculation of estimated glomerular filtration rate > NRG Serum or plasma glucose measurement (mass/volume) 85 mg/dL 70-105 Serum or plasma calcium measurement (mass/volume) 9.5 mg/dL 8.5-10.1 Serum or plasma total bilirubin measurement (mass/volume) 1.3 mg/dL 0.1-1.0 Serum or plasma alkaline phosphatase measurement (enzymatic activity/volume) 44 U/L 40-136 Serum or plasma aspartate aminotransferase measurement (enzymatic activity/ volume) 42 U/L 5-34 Serum or plasma alanine aminotransferase measurement (enzymatic activity/volume ) 61 U/L 0-55 Serum or plasma protein measurement (mass/volume) 7.0 g/dL 6.4-8.2 Serum or plasma albumin measurement (mass/volume) 4.3 g/dL 3.2-4.5 [facility] - 03/31/17 16:09 GLUCOSE 99 mg/dL 65-99 UREA NITROGEN (BUN) 10 mg/dL 7-25 CREATININE 0.85 mg/dL 0.70-1.33 eGFR NON-AFR. P[place] 102 mL/min/1.73m2 > OR=60 eGFR 118 mL/min/1.73m2 > OR=60 BUN/CREATININE RATIO NOT APPLICABLE (calc) 6-22 SODIUM 140 mmol/L 135-146 POTASSIUM 4.5 mmol/L 3.5-5.3 CHLORIDE 102 mmol/L 98-110 CARBON DIOXIDE 29 mmol/L 20-31 CALCIUM 9.9 mg/dL 8.6-10.3 PROTEIN, TOTAL 7.3 g/dL 6.1-8.1 ALBUMIN 4.8 g/dL 3.6-5.1 GLOBULIN 2.5 g/dL (calc) 1.9-3.7 ALBUMIN/GLOBULIN RATIO 1.9 (calc) 1.0-2.5 BILIRUBIN, TOTAL 1.1 mg/dL 0.2-1.2 ALKALINE PHOSPHATASE 42 U/L 40-115 AST 23 U/L 10-35 ALT 43 U/L 9-46 Encounters ACCT No. Visit Date/Time Discharge Status Pt. Type Provider Facility Loc./Unit Complaint [id number] 03/14/2014 16:03:00 03/14/2014 23:59:59 CLS Outpatient JANNET PIRES DO [id number] 02/06/2014 10:56:00 02/06/2014 23:59:59 CLS Outpatient JANNET PIRES DO [id number] 04/10/2016 08:37:00 Document Registration [id number] 02/09/2017 10:10:00 02/09/2017 23:59:59 CLS Emergency [place], [facility] ED ill [id number] 02/09/2017 10:10:00 02/09/2017 11:00:00 DIS Emergency [place] [facility] ED ill [id number] 07/12/2013 15:43:00 07/13/2013 12:27:00 DIS Outpatient TASH MCCOLLUM [facility] DME [id number] 12/22/2017 10:30:00 12/22/2017 23:59:59 CLS Preadmit NORM CHAVES DO [facility] ENDO SCREENING [id number] 12/15/2017 05:39:00 12/15/2017 23:59:59 CLS Outpatient NORM CHAVES DO [facility] PREOP COLONOSCOPY [id number] 02/10/2017 16:02:00 02/10/2017 17:44:00 DIS Emergency RODNEY SHEIKH MD [facility] ER RAMIRES,SLURRED SPEECH,LT HAND NUMBNESS [id number] 05/29/2017 09:32:00 Document Registration [id number] 05/29/2017 09:32:00 Document Registration [id number] 05/29/2017 09:32:00 Document Registration [id number] 01/31/2011 10:46:00 Document Registration [id number] 02/18/2010 20:33:00 Document Registration [id number] 02/16/2010 12:28:00 Document Registration [id number] 11/05/2017 16:40:00 11/05/2017 23:59:59 CLS Outpatient [facility] [id number] 03/31/2017 16:00:00 Document Registration
--- OUTSIDE RECORDS SUMMARY | 2018-01-05 10:21 | XMS REPORT ---
Author Author DIANN JUAREZ Organization [facility] Address [address] [place] [address] Care Team Providers Care Water Inspector Name Role Phone DIANN JUAREZ Unavailable PROBLEMS Type Condition ICD9-CM Code EFM40-OT Code Onset Dates Condition Status SNOMED Code Problem Low back pain M54.5 Active 740529686 Problem Cramps of right lower extremity R25.2 Active 314740148 Problem Type 2 diabetes mellitus without complication E11.9 Active 52797355 Problem Unspecified mood [affective] disorder F39 Active 186184183 Problem Mixed hyperlipidemia E78.2 Active [id number] ALLERGIES No Information ENCOUNTERS Encounter Location Date Diagnosis [facility] [id number] [place] [address] 76458- 9624 Mar, Mixed hyperlipidemia E78.2 [facility] [id number] [place] [address] 15183- 2739 Mar, Type 2 diabetes mellitus without complication E11.9 and Mixed hyperlipidemia E78.2 [facility] [address] [address] Feb, [facility] [address] [place] [address] 54181- 1033 Feb, [facility] [address] [address] Feb, [facility] [address] [place] [address] 66738- 6206 Feb, Type 2 diabetes mellitus without complication E11.9 [facility] [id number] [place] [id number] Oct, Hand pain, right M79.641 ; Mixed hyperlipidemia E78.2 and Hand pain, left M79.642 [facility] [id number] [place] [address] 18130- 9065 09 Sep, 2016 Hand pain, right M79.641 and Hand pain, left M79.642 [facility] [id number] [place] [address] 73224- 4861 Sep, Type 2 diabetes mellitus without complication E11.9 ; Mixed hyperlipidemia E78.2 ; Low back pain M54.5 ; Hand pain, left M79.642 and Hand pain, right M79.641 [place] [id number] [place] [address] 36525- 0373 August, [facility] [id number] [place] [address] 99158- 0750 May, [facility] [facility] [id number] [place] [address] 13100- 3000 Apr, Mixed hyperlipidemia E78.2 [facility] [id number] [place] [address] 29644- 2077 Apr, Mixed hyperlipidemia E78.2 ; Type 2 diabetes mellitus without complication E11.9 ; Cramps of right lower extremity R25.2 and Nevus of back D22.5 [facility] [id number] [place] [address] 15180- 5692 Feb, Mixed hyperlipidemia E78.2 and Type 2 diabetes mellitus without complication E11.9 [facility] [id number] [place] [address] 14836- 1865 Nov, [facility] [facility] [id number] [place] [address] 52636- 9864 Nov, Mixed hyperlipidemia E78.2 and Type 2 diabetes mellitus without complication E11.9 [facility] [id number] [place] [address] 98418- 2254 Jun, Unspecified mood [affective] disorder F39 [facility] [id number] [place] [address] 44532- 2528 Feb, Mixed hyperlipidemia E78.2 and Type 2 diabetes mellitus without complication E11.9 [facility] [address] [place] [address] 69553- 3127 Dec, Diabetes 250.00 and Hyperlipidemia 272.4 [facility] [id number] [place] [address] 41055- 1479 Jul, [facility] [address] 84333- 2246 Jul, [facility] [id number] [place] [address] 58897- 7085 Mar, [facility] [id number] [place] [address] 30511- 1382 Mar, [facility] [id number] [place] [address] 22356- 6254 Feb, [facility] [id number] [place] [address] 42432- 7386 Feb, [facility] [id number] [place] [address] 91923- 4868 Feb, [facility] [id number] [place] [address] 50892- 8067 Feb, IMMUNIZATIONS No Known Immunizations SOCIAL HISTORY Never Assessed REASON FOR VISIT Requests return call PLAN OF CARE VITAL SIGNS MEDICATIONS Unknown Medications RESULTS No Results PROCEDURES No Known procedures INSTRUCTIONS MEDICATIONS ADMINISTERED No Known Medications MEDICAL (GENERAL) HISTORY Type Description Date Medical History hyperlipidemia Medical History pre-diabetic Medical History Sleep Apnea- Cpap Medical History Viral warts, unspecified Surgical History appendectomy 1980
--- OUTSIDE RECORDS SUMMARY | 2018-01-05 10:21 | XMS REPORT ---
Author Author DIANN JUAREZ Organization [facility] Address [address] [place] [address] Care Team Providers Care Emergency Telecommunications Dispatcher Name Role Phone DIANN JUAREZ Unavailable PROBLEMS Type Condition ICD9-CM Code TRZ14-IB Code Onset Dates Condition Status SNOMED Code Problem Low back pain M54.5 Active 253901498 Problem Cramps of right lower extremity R25.2 Active 595223970 Problem Type 2 diabetes mellitus without complication E11.9 Active 73768410 Problem Unspecified mood [affective] disorder F39 Active 211311019 Problem Mixed hyperlipidemia E78.2 Active 079706885 ALLERGIES No Information ENCOUNTERS Encounter Location Date Diagnosis [facility] [address] [place] [address] 27650- 8791 Mar, Mixed hyperlipidemia E78.2 [facility] [address] [place] [address] 67279- 6123 Mar, Type 2 diabetes mellitus without complication E11.9 and Mixed hyperlipidemia E78.2 [facility] [address], [place] [address] 2512 Feb, [facility] [address] [place] [address] 99505- 2882 Feb, [facility] [address], [place] [address] 2948 Feb, [facility] [address] [place] [address] 45760- 4143 Feb, Type 2 diabetes mellitus without complication E11.9 [facility] [id number] [place] [id number] Oct, Hand pain, right M79.641 ; Mixed hyperlipidemia E78.2 and Hand pain, left M79.642 [facility] [id number] [place] [address] 80875- 0747 09 Sep, 2016 Hand pain, right M79.641 and Hand pain, left M79.642 [facility] [id number] [place] [address] 47716- 7280 Sep, Type 2 diabetes mellitus without complication E11.9 ; Mixed hyperlipidemia E78.2 ; Low back pain M54.5 ; Hand pain, left M79.642 and Hand pain, right M79.641 [place] [facility] [id number] [place] [address] 68740- 9058 August, [facility] [id number] [place] [address] 95476- 2130 May, [facility] [facility] [id number] [place] [address] 96635- 1123 Apr, Mixed hyperlipidemia E78.2 [facility] [id number] [place] [address] 27044- 0929 Apr, Mixed hyperlipidemia E78.2 ; Type 2 diabetes mellitus without complication E11.9 ; Cramps of right lower extremity R25.2 and Nevus of back D22.5 [facility] [id number] [place] [address] 83470- 5362 Feb, Mixed hyperlipidemia E78.2 and Type 2 diabetes mellitus without complication E11.9 [facility] [id number] [place] [address] 03785- 7492 Nov, [facility] [id number] [place] [address] 39613- 0181 Nov, Mixed hyperlipidemia E78.2 and Type 2 diabetes mellitus without complication E11.9 [facility] [id number] [place] [address] 53371- 8955 Jun, Unspecified mood [affective] disorder F39 [facility] [id number] [place] [address] 66599- 1106 Feb, Mixed hyperlipidemia E78.2 and Type 2 diabetes mellitus without complication E11.9 [facility] [address], [place] [address]- 6011 Dec, Diabetes 250.00 and Hyperlipidemia 272.4 [facility] [address] [place] [address] 49425- 2541 Jul, [facility] [id number] [place] [address] 89503- 6975 Jul, [facility] [id number] [place] [address] 68813- 2279 Mar, [facility] [id number] [place] [address] 99799- 7919 Mar, [facility] [id number] [place] [address] 33967- 0850 Feb, [facility] [id number] [place] [address] 86464- 2867 Feb, [facility] [address] [place] [address] 33035- 7043 Feb, [facility] [address] [place] [address] 76127- 7340 Feb, IMMUNIZATIONS No Known Immunizations SOCIAL HISTORY Never Assessed REASON FOR VISIT Requests return call PLAN OF CARE VITAL SIGNS MEDICATIONS Medication Instructions Dosage Frequency Start Date End Date Duration Status Flonase 50 MCG/ACT Nasally twice daily for 2 weeks then once daily 1 spray in each nostril Feb, 30 day(s) Active RESULTS No Results PROCEDURES No Known procedures INSTRUCTIONS MEDICATIONS ADMINISTERED No Known Medications MEDICAL (GENERAL) HISTORY Type Description Date Medical History hyperlipidemia Medical History pre-diabetic Medical History Sleep Apnea- Cpap Medical History Viral warts, unspecified Surgical History appendectomy 1980
[2018-01-05] MEDS ORDERED: LACTATED RINGERS 1,000 ML IV STA (10:34)
[2018-01-05] MEDS ORDERED: PROPOFOL INJECTION 50 ML IV ONE (10:41)
[2018-01-05] MEDS ORDERED: MIDAZOLAM 2 MG/2 ML (VERSED) VIAL ONE ×2 (10:42→11:28)
[2018-01-05] MEDS ORDERED: LACTATED RINGERS 1,000 ML IV ONE (10:54)
[2018-01-05 11:26] VITALS: BP 125/79
--- NOTE | 2018-01-05 13:39 | Progress Note-Post Operative ---
Post-Operative Progess Note Surgeon (s)/Licensed Club Manager (s) Surgeon NORM CHAVES DO Licensed Club Manager: na Pre-Operative Diagnosis screening colonoscopy Post-Operative Diagnosis sigmoid colon polyp Procedure & Operative Findings Date of Procedure 01/05/18 Procedure Performed/Findings colonoscopy with hot bx polypectomy Anesthesia Type per wet mix operator Estimated Blood Loss Estimated blood loss (mL): none Specimens/Packing Specimens Removed sigmoid colon polyp NORM CHAVES DO Jan 05, 2018 13:39
--- NOTE | 2018-01-05 13:40 | Discharge Inst-Simple/Standard ---
Discharge Inst-Standard Patient Instructions/Follow Up Plan of Care/Instructions/FU: 2 weeks María Activity as Tolerated: Yes Discharge Diet: Regular Diet NORM CHAVES DO Jan 05, 2018 13:40
[2018-01-05 14:05] VITALS: BP 159/88
--- NOTE | 2018-01-05 14:20 | Anesthesia-General Post-Op ---
MAC Patient Condition Mental Status/LOC: Same as Preop Cardiovascular: Satisfactory Nausea/Vomiting: Absent Respiratory: Satisfactory Pain: Controlled Complications: Absent Post Op Complications Complications None Follow Up Care/Instructions Patient Instructions None needed. Anesthesiology Discharge Order Discharge Order Patient is doing well, no complaints, stable vital signs, no apparent adverse anesthesia problems. No complications reported per nursing. DEBRA LILLY CRNA Jan 05, 2018 14:20
[2018-01-05 14:35] VITALS: BP 143/87
--- NOTE | 2018-01-05 15:19 | OPERATIVE REPORT ---
DATE OF SERVICE: 01/05/2018 PREOPERATIVE DIAGNOSIS: Screening colonoscopy. POSTOPERATIVE DIAGNOSIS: Colon polyp. PROCEDURE: Colonoscopy with hot biopsy polypectomy. SURGEON: Norm Daniel DO ANESTHESIA: Per FUR MIXER. ESTIMATED BLOOD LOSS: None. COMPLICATIONS: None. INDICATIONS: The patient is a 52-year-old male with a need for screening colonoscopy. He understands risks and benefits of procedure and wished to proceed with procedure. Consent was signed on the chart. DESCRIPTION OF PROCEDURE: The patient was taken to the endoscopy suite, placed in left lateral recumbent position. Timeout was performed. Digital rectal exam was performed. There were no palpable polyps, mass or ulcerations. The scope was inserted in the rectum and advanced all the way to the cecum with minimal difficulty. Prep was adequate. There were no polyps, mass or ulcerations within the cecum, ascending, transverse and descending colon. Within the proximal sigmoid colon, a small polyp was present, which hot biopsy polypectomy was performed. Scope was continued to be slowly retracted back noting no other pathology. Once in the rectum, scope was retroflexed noting some slight internal hemorrhoids. No other pathology noted. Scope was returned to its normal position, slowly withdrawn until completely removed. The patient tolerated procedure well without any complications and taken to recovery room in stable condition. RECOMMENDATIONS: The patient will need repeat colonoscopy in 5 years. If he has any problems prior to that, he should be reevaluated at that time. The patient will follow up in the office in two weeks to discuss pathology and see how he is doing. Job ID: [id number] DocumentID: [id number] Dictated Date: 01/05/2018 13:38:06 Special Librarian Date: 01/05/2018 15:18:19 Dictated By: NORM DANIEL DO
[2018-01-05 15:25] VITALS: BP 143/87
== END 2018-01-05 15:25 | disposition home or self-care (01) ==
LOC: ENDO 10:16
PROVIDERS: ATTEND Surgery
DX: Z12.11 Encounter for screening for malignant neoplasm of colon (principal); K63.5 Polyp of colon; I10 Essential (primary) hypertension; I25.2 Old myocardial infarction; E78.5 Hyperlipidemia, unspecified; K21.9 Gastro-esophageal reflux disease without esophagitis; R73.03 Prediabetes; Z79.84 Long term (current) use of oral hypoglycemic drugs

== ENCOUNTER 2018-07-17 20:48 | Outpatient (CLI) | payer BC | END 2018-07-18 06:41 | disposition home or self-care (01) | LOC: RAD 20:48 → SLEEP 07-18 06:41 | PROVIDERS: ATTEND Nurse Practitioner Family | DX: G47.33 Obstructive sleep apnea (adult) (pediatric) (principal); R53.83 Other fatigue | CPT/HCPCS: 95811 ==